=== PATIENT | male | born 1970 | race Caucasian/White ===

== ENCOUNTER 2017-08-07 18:24 | Emergency (ER) | payer BC ==
[~2017-08-07] VITALS: Ht 185.4 cm; Wt 138.6 kg
[~2017-08-07 18:24] MED LIST: Z.0.NO CURRENT MEDS
[2017-08-07 18:30] VITALS: BP 168/99; PULSE 110; RESP 20; TEMP 97.9; O2SAT 97
[2017-08-07] MEDS ORDERED: CHOLPOW65 PO (18:33)
[2017-08-07] MEDS ORDERED: METF1000 PO (18:33)
[2017-08-07] MEDS ORDERED: PHEN-556 PO (18:34)
--- NOTE | 2017-08-07 19:54 | PD ---
HPI Chief Complaint: Injury Time Seen by Provider: 19:02 Travel History International Travel<30 days: No Contact w/Intl Traveler<30days: No Traveled to known affect area: No History of Present Illness HPI 47-year-old male presents to the emergency department with complaint of right distal forearm pain after being hit in the arm with a softball that had just been batted at approximately 9 AM this morning. 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 Denies wrist pain and decreased range of motion of the wrist. Denies loss of sensation to the affected extremity. Has tried ice and Advil with no relief of symptoms. Rates pain 6/10. Worse with movement. Better at rest. No known allergies. Primary care provider is Dr. Palacio. History of diabetes mellitus. Has no other medical complaints. No other modifying factors or associated signs and symptoms. PFSH Past Medical History Blood Disorders: No Anxiety: No Depression: Yes Cancer: No High Cholesterol: Yes Diabetes: Yes Patient Takes Glucophage: Yes (0608-07-17) Diminished Hearing: No Endocrine: No Immune Disorder: No Neurologic: No Psychiatric: No Immunizations Current: No Tetanus Vaccination: > 5 Years Influenza Vaccination: No Past Surgical History Appendectomy: Yes Social History Alcohol Use: No Tobacco Use: No Substance Use: No Allergies-Medications (Allergen,Severity, Reaction): Coded Allergies: No Known Allergies (Verified Adverse Reaction, Unknown, 08/07/17) Reported Meds & Prescriptions Reported Meds & Active Scripts Active Reported Lomaira (Phentermine HCl) 8 Mg Tab 8 Mg PO DAILY Cholesterol 1 Pow Pow 1 Tab PO DAILY Metformin (Metformin HCl) 1,000 Mg Tab 1,000 Mg PO DAILY With a meal Review of Systems Except as stated in HPI: all other systems reviewed are Neg Physical Exam Narrative GENERAL: Well-nourished, well-developed patient, in no acute distress SKIN: Warm and dry. HEAD: Atraumatic. Normocephalic. EYES: Pupils equal and round. No scleral icterus. No injection or drainage. ENT: Mucosa pink and moist. Airway patent. NECK: Trachea midline. CARDIOVASCULAR: Regular rate. RESPIRATORY: No accessory muscle use. GASTROINTESTINAL: Rounded. MUSCULOSKELETAL: Right forearm with contusion jerry noted to the distal radial area; with tenderness on palpation; no obvious deformity. Right wrist without tenderness on palpation; no erythema ;without edema; full flexion and extension. Right hand with full range of motion at all joints; decreased commercial driver's license driver strength when compared to the left. Right upper extremity is supple and non- tense with 2+ radial pulse and sensory intact. No obvious deformities. No clubbing. No cyanosis. NEUROLOGICAL: Awake and alert. Oriented 3. No obvious cranial nerve deficits. Motor grossly within normal limits. Normal speech. PSYCHIATRIC: Appropriate mood and affect; insight and judgment normal. Data Data Last Documented VS Vital Signs Date Time Temp Pulse Resp B/P (MAP) Pulse Ox O2 Delivery O2 Flow Rate FiO2 08/07/17 18:30 97.9 110 20 168/99 (122) 97 Orders Orders Forearm (2vws) (08/07/17 19:09) MDM Medical Decision Making Medical Screen Exam Complete: Yes Emergency Medical Condition: Yes Medical Record Reviewed: Yes Differential Diagnosis Contusion, fracture, nerve injury Narrative Course 47-year-old male with right forearm injury. I offered patient pain medication and he declined. Right forearm x-ray ordered. 2014: Right forearm x-ray concluded: [facility] X-Ray 08/07/171908 Signed Impressions: CONCLUSION: No acute findings. Discussed x-ray findings with the patient. Velcro wrist splint provided for support. Ibuprofen prescribed for home. Instructed patient to follow-up if symptoms persist greater than 7-10 days. Instructed patient to follow up with primary care provider. Patient verbalizes understanding and agreement with treatment plan. Patient is medically cleared and stable for discharge. Discussed reasons to return to the emergency department. Patient agrees with treatment plan. The patients vital signs are stable and the patient is stable for outpatient follow-up and treatment. Patient discharged home, stable and in no acute distress. Diagnosis Primary Impression: Contusion of right forearm Qualified Codes: S50.11XA - Contusion of right forearm, initial encounter Referrals: Primary Care Physician Patient Instructions: Contusion in Adults (ED), General Instructions Additional Instructions: Tylenol or ibuprofen as directed and as needed to reduce pain Rest, ice, compress, and elevate extremity to decrease pain and inflammation Emil wrap for support Avoid aggravating activity; increase activity as tolerated Follow-up with primary care provider Return to the emergency department immediately with worsening symptoms Med/Other Pt SpecificInfo: Prescription(s) given Scripts Ibuprofen (Ibuprofen) 800 Mg Tab 800 MG PO Q6HR Y for PAIN, #20 TAB 0 Refills Prov: Anne Zheng 08/07/17 Disposition: 01 DISCHARGE HOME Condition: Stable Anne Zheng Aug 07, 2017 19:54
--- NOTE | 2017-08-07 20:05 | RADRPT ---
EXAM DATE: 08/07/2017 7:59 PM EDT AGE/SEX: 47 years / Male INDICATIONS: Baseball injury. Struck in wrist with ball. CLINICAL DATA: This is the patient's initial encounter. Patient reports that signs and symptoms have been present for 1 day and indicates a pain score of 8/10. MEDICAL/SURGICAL HISTORY: None. None. COMPARISON: No prior exams available for comparison. FINDINGS: Bony structures are intact and in normal alignment. Osseous density is normal. Soft tissues are unre markable. No radiopaque foreign bodies seen. CONCLUSION: No acute findings. Electronically signed by: Eliseo Castellanos MD 08/07/2017 8:04 PM EDT
[2017-08-07] MEDS ORDERED: IBUP1TAB7 PO (20:16)
== END 2017-08-07 20:32 | disposition home or self-care (01) ==
LOC: PHEFT 18:24
DX: S50.11XA Contusion of right forearm, initial encounter (principal); W21.07XA Struck by softball, initial encounter; E11.9 Type 2 diabetes mellitus without complications; F32.9 Major depressive disorder, single episode, unspecified; E78.00 Pure hypercholesterolemia, unspecified
CPT/HCPCS: 73090; 99283; L3908